=== PATIENT | male | born 1970 | race Caucasian/White ===

== ENCOUNTER 2019-11-20 06:12 | Day surgery (SDC) | payer BC ==
[2019-11-19 10:12] VITALS: BMI 30.6
[~2019-11-20 06:12] MED LIST: BUPIVACAINE HCL/PF 0.25% (2.5MG/ML) 10 ML VIAL IJ ONE; LIDOCAINE HCL 1% PRESERVATIVE FREE - 30ML VIAL IJ ONE; methylPREDNISolone ACET (DEPO) 80 MG/1 ML VIAL IJ ONE
[2019-11-20] MEDS ORDERED: methylPREDNISolone ACET (DEPO) 80 MG/1 ML VIAL ONE (07:06)
[2019-11-20] MEDS ORDERED: BUPIVACAINE HCL/PF 0.25% (2.5MG/ML) 10 ML VIAL ONE (07:06)
[2019-11-20] MEDS ORDERED: MIDAZOLAM HCL 2 MG/2 ML SINGLE DOSE VIAL ONE (08:13)
[2019-11-20] MEDS ORDERED: SUCCINYLCHOLINE CHLORIDE 200 MG/10 ML SYRINGE ONE (08:15)
[2019-11-20] MEDS ORDERED: PROPOFOL 20 ML ONE (08:15)
[2019-11-20] MEDS ORDERED: LIDOCAINE HCL 1% PRESERVATIVE FREE - 30ML VIAL IJ ONE (08:25)
[2019-11-20] MEDS ORDERED: BUPIVACAINE HCL/PF 0.25% (2.5MG/ML) 10 ML VIAL IJ ONE (08:28)
[2019-11-20] MEDS ORDERED: methylPREDNISolone ACET (DEPO) 80 MG/1 ML VIAL IJ ONE (08:28)
[2019-11-20 11:46] VITALS: BP 140/78; PULSE 80; TEMP 97.8
--- NOTE | 2019-11-21 07:12 | OP ---
DATE OF OPERATION: 11/20/2019 PREOPERATIVE DIAGNOSES: 1. Right L2-L3 paracentral disk herniation with degenerative disk disease and spinal stenosis. 2. Right L2-L3 radiculopathy. POSTOPERATIVE DIAGNOSES: 1. Right L2-L3 paracentral disk herniation with degenerative disk disease and spinal stenosis. 2. Right L2-L3 radiculopathy. ATTENDING SURGEON: Ruben Pennington MD PROCEDURES PERFORMED: 1. Right L2-L3 epidural steroid injection. 2. Intraoperative fluoroscopy. ANESTHESIA: Local with IV sedation. ANESTHESIOLOGIST: Leighann Pritchard M.D. INDICATIONS: Patient is 48-year-old male with intractable lower back pain and lumbar radiculopathy. Because of intractable symptoms and failure of conservative treatment, he is here for the 1st epidural steroid injection. The risks of the procedure include but are not limited to bleeding, infection, spinal headache and neurologic injury. The patient understands the indications for the procedure, the procedure in detail, the risks and benefits, and alternative treatments for his lumbar condition, and wishes to proceed. No guarantees were given for a favorable outcome. PROCEDURE IN DETAIL: After the patient was taken to the operating room, he was placed in the prone position with a pillow under his hips. The lumbar region was cleaned with alcohol and prepped with Betadine. A skin wheal was raised with 5 mL of 1% Xylocaine. A 22-gauge spinal needle was inserted under AP and lateral fluoroscopic guidance from a right-sided approach to L2-L3. Degenerative space narrowing and slight scoliosis noted. An interlaminar approach and the [id number]-[id number] technique were utilized. There was no CSF or blood backflow. Depo-Medrol 80 mg and 1 mL of 0.25% Marcaine were injected. The needle was withdrawn. A sterile bandage was applied. The patient tolerated the procedure well. He was turned back to the supine position. He was moving bilateral lower extremities well. He did not complain of a headache. RUBEN PENNINGTON M.D. [id number]
== END 2019-11-20 11:00 | disposition home or self-care (01) ==
LOC: JASU-SURG 06:12
PROVIDERS: ATTEND Neurological Surgery
PROC: 3E0R3BZ Introduction of Anesthetic Agent into Spinal Canal, Percutaneous Approach (ICD-10-PCS; 2019-11-20)
PROC: B01BYZZ Fluoroscopy of Spinal Cord using Other Contrast (ICD-10-PCS; 2019-11-20)
PROC: 3E0R33Z Introduction of Anti-inflammatory into Spinal Canal, Percutaneous Approach (ICD-10-PCS; principal; 2019-11-20 08:00)
DX: M48.061 Spinal stenosis, lumbar region without neurogenic claudication (principal); M51.16 Intervertebral disc disorders with radiculopathy, lumbar region
CPT/HCPCS: 76000-TC-FY

== ENCOUNTER 2022-12-14 04:10 | Day surgery (SDC) | payer BC ==
[2022-12-09 12:45] VITALS: BMI 29.5
[~2022-12-14 04:10] MED LIST changes: -BUPIVACAINE HCL/PF 0.25% (2.5MG/ML) 10 ML VIAL IJ ONE; +BUPIVACAINE HCL/PF 0.75% 10 ML VIAL NR ONE; +LIDOCAINE 1% P/F 10 MG/ML VIAL INF ONE; -LIDOCAINE HCL 1% PRESERVATIVE FREE - 30ML VIAL IJ ONE; -methylPREDNISolone ACET (DEPO) 80 MG/1 ML VIAL IJ ONE; +methylPREDNISolone ACET (DEPO) 80 MG/1 ML VIAL IM ONE; +methylPREDNISolone NA SUCC 40 MG/1 ML VIAL IAR ONE
[2022-12-14] MEDS ORDERED: MIDAZOLAM HCL 2 MG/2 ML SINGLE DOSE VIAL ONE (07:07)
[2022-12-14] MEDS ORDERED: PROPOFOL 20 ML ONE (07:07)
[2022-12-14] MEDS ORDERED: BUPIVACAINE HCL/PF 0.75% 10 ML VIAL ONE (07:20)
[2022-12-14] MEDS ORDERED: methylPREDNISolone ACET (DEPO) 80 MG/1 ML VIAL ONE ×2 (07:20→07:24)
[2022-12-14] MEDS ORDERED: DEXAMETHASONE SOD PHOSPHATE 10 MG/1 ML VIAL ONE (07:20)
[2022-12-14] MEDS ORDERED: LIDOCAINE HCL/PF 1% SDV 5ML VIAL ONE (07:20)
[2022-12-14] MEDS ORDERED: methylPREDNISolone NA SUCC 125 MG/2 ML VIAL ONE (07:39)
[2022-12-14] MEDS ORDERED: methylPREDNISolone NA SUCC 40 MG/1 ML VIAL IVPB ONE (07:45)
[2022-12-14] MEDS ORDERED: LIDOCAINE 1% P/F 10 MG/ML VIAL INF ONE ×2 (07:53)
[2022-12-14] MEDS ORDERED: BUPIVACAINE HCL/PF 0.75% 10 ML VIAL NR ONE ×2 (07:53)
[2022-12-14] MEDS ORDERED: methylPREDNISolone ACET (DEPO) 80 MG/1 ML VIAL NR ONE (07:53)
[2022-12-14 09:30] VITALS: RESP 20; TEMP 97
[2022-12-14 09:35] VITALS: BP 128/85; PULSE 73
== END 2022-12-14 09:05 | disposition home or self-care (01) ==
LOC: JASU-SURG 04:10
PROVIDERS: ATTEND Neurological Surgery
PROC: 3E0R3BZ Introduction of Anesthetic Agent into Spinal Canal, Percutaneous Approach (ICD-10-PCS; 2022-12-14)
PROC: 3E0R33Z Introduction of Anti-inflammatory into Spinal Canal, Percutaneous Approach (ICD-10-PCS; principal; 2022-12-14 07:30)
DX: M51.16 Intervertebral disc disorders with radiculopathy, lumbar region (principal)
CPT/HCPCS: 76000-TC-FY; 82962; J1100